=== PATIENT | female | born 1990 | race Caucasian/White ===

== ENCOUNTER 2017-08-16 22:39 | Emergency (ER) | payer SELFPAY ==
[2017-08-16 22:53] VITALS: BP 151/88
--- NOTE | 2017-08-16 23:42 | RADIOLOGY REPORT (SQ) ---
EXAM DESCRIPTION: FOOT LEFT COMPLETE CLINICAL HISTORY: 26 years, Female, pain with walking, no injury COMPARISON: None. NUMBER OF VIEWS: 3 Findings: Small osteophyte at the base of the left fifth metatarsus. Bipartite fibular sesamoid. Bones, joints, and soft tissues of FOOT LEFT appear otherwise intact. No significant effusion. IMPRESSION: No acute findings.
[2017-08-16] MEDS ORDERED: PREDNISONE 20 MG TABLET PO ONE (23:55)
--- NOTE | 2017-08-16 23:59 | ER Document Report ---
ED General - General Chief Complaint: Foot Pain Stated Complaint: LEFT HEEL PAIN WHEN WALKING,NO KNOWN INJURY Time Seen by Provider: 08/16/17 23:44 Notes: Patient is a 26-year-old female with a past medical history of morbid obesity who presents with 1 week of left heel pain. She describes as a severe, throbbing pain that is present when she tries to bear weight. She states that the symptoms been unchanged since onset despite use of ibuprofen. She denies a history of similar symptoms in the past. No known injury to the area. She denies any pain when she is not walking or bearing weight on the area. She has not seen her primary care doctor regarding today's concerns. She does admit to frequent use of flip-flops and does not use supportive shoes while at work. TRAVEL OUTSIDE OF THE [place] IN LAST 30 DAYS: No - Related Data Allergies/Adverse Reactions: No Known Allergies Allergy (Verified 07/21/13 13:40) Past Medical History - General Information source: Patient - Social History Smoking Status: Never Smoker Frequency of alcohol use: None Drug Abuse: None Lives with: Family Family History: CAD - mother and father, Hypertension - mother Pulmonary Medical History: Reports: Hx Asthma Endocrine Medical History: Reports: Hx Diabetes Mellitus Type 2 - but has not taken her metformin, was told to take 500mg bid Musculoskeltal Medical History: Reports Hx Fibromyalgia Psychiatric Medical History: Reports: Hx Anxiety - on buspar, feels not working , Hx Bipolar Disorder, Hx Depression - major Past Surgical History: Reports: Hx Orthopedic Surgery - right ankle - Immunizations Hx Diphtheria, Pertussis, Tetanus Vaccination: No Review of Systems - Review of Systems Notes: Constitutional: Negative for fever. HENT: Negative for sore throat. Eyes: Negative for visual changes. Cardiovascular: Negative for chest pain. Respiratory: Negative for shortness of breath. Gastrointestinal: Negative for abdominal pain, vomiting or diarrhea. Genitourinary: Negative for dysuria. Musculoskeletal: Positive for left heel pain Skin: Negative for rash. Neurological: Negative for headaches, weakness or numbness. 10 point ROS negative except as marked above and in HPI. Physical Exam - Vital signs Vitals: Temp Pulse Resp BP Pulse Ox 98.4 F 110 H 20 151/88 H 97 08/16/17 22:50 08/16/17 22:50 08/16/17 22:50 08/16/17 22:50 08/16/17 22:50 Interpretation: Tachycardic Notes: PHYSICAL EXAMINATION: GENERAL: Well-appearing, well-nourished and in no acute distress. HEAD: Atraumatic, normocephalic. EYES: sclera anicteric, conjunctiva are normal. ENT: Moist mucous membranes. NECK: Normal range of motion LUNGS: Normal work of breathing HEART: 2+ radial pulses bilaterally EXTREMITIES: no pitting or edema. No cyanosis. Pain on palpation of the calcaneal region of the left heel. Otherwise no notable findings on extremity examination. NEUROLOGICAL: No focal neurological deficits. Moves all extremities spontaneously and on command. PSYCH: Normal mood, normal affect. SKIN: Warm, Dry, normal turgor, no rashes or lesions noted. Course - Re-evaluation Re-evalutation: 08/16/17 23:58 Patient presents with signs and symptoms most consistent with a likely hairline calcaneal fracture on the left. She has no pain on palpation of the central plantar surfaces that she has plantar fasciitis. The pain is exclusively on palpation of the calcaneus. X-ray without any evidence of an acute fracture. Anticipate that this is likely a microfracture or a soft tissue contusion of the area. Patient is morbidly obese which is likely contributing to the development and ongoing nature of this complaint. I recommended icing the area , keeping off the area, wearing very supportive shoes and continue NSAID therapy. The patient has requested steroid burst as she states this is helped with similar issues in the past. I have explained the patient that this may not be beneficial but is also unlikely to be harmful. At this time will discharge with return precautions and follow-up recommendations. Verbal discharge instructions given a the bedside and opportunity for questions given. Medication warnings reviewed. Patient is in agreement with this plan and has verbalized understanding of return precautions and the need for primary care follow-up in the next 24-72 hours. - Vital Signs Vital signs: Temp Pulse Resp BP Pulse Ox 98.4 F 110 H 20 151/88 H 97 08/16/17 22:50 08/16/17 22:50 08/16/17 22:50 08/16/17 22:50 08/16/17 22:50 Discharge - Discharge Clinical Impression: Heel pain Qualifiers: Laterality: left Qualified Code(s): M79.672 - Pain in left foot Condition: Good Disposition: HOME, SELF-CARE Additional Instructions: Your x-ray does not show any acute fracture today. You may have a hairline fracture of the calcaneus which fits with the likely cause of your pain. You need to wear very supportive shoes while at work and avoid sandals at all times. Take the steroids that you have requested as prescribed. Continue to apply ice to the area is much your able. Please follow-up with your primary care physician if you do not have improving your symptoms in the next 1-2 weeks. Please return immediately if you develop weakness, numbness, spreading redness from the area, or any other symptoms that are concerning to you. Prescriptions: Prednisone [Deltasone 20 mg Tablet] 2 tab PO DAILY 5 Days tablet Forms: Return to Work Referrals: WINSTON,NO [Primary Care Provider] - Follow up as needed
== END 2017-08-17 00:09 | disposition home or self-care (01) ==
LOC: ER 22:39
DX: M79.672 Pain in left foot (principal); E66.01 Morbid (severe) obesity due to excess calories
CPT/HCPCS: 99283; 73630; J7512

== ENCOUNTER 2019-04-12 01:38 | Emergency (ER) | payer SELFPAY ==
--- NOTE | 2019-04-12 03:43 | ER Document Report ---
HPI - HPI Time Seen by Provider: 04/12/19 03:35 Pain Level: 4 Context: Patient is a 28-year-old female that comes to the emergency department for chief complaint of left-sided chest pain. She states pain radiates to her left shoulder, hurts when she moves her left arm. She states she has had intermittent soreness in this location and yesterday she helped a friend move furniture, she states today the pain bridger gotten a lot worse than usual. She denies numbness, injury, fever/chills, difficulty breathing, nausea/vomiting. LMP within the past month. She denies any daily prescribed medications. PMH of hypertension. She denies family history of early cardiac disease. She denies recreational drugs. She smokes, reports rare alcohol. - GASTROINTESTINAL Gastrointestinal: REPORTS: Abdominal Pain - left chest - REPRODUCTIVE Reproductive: DENIES: : - MUSCULOSKELETAL Musculoskeletal: REPORTS: Extremity pain - left arm Past Medical History - General Information source: Patient - Social History Smoking Status: Current Every Day Smoker Smoking Education Provided: Yes - <3 min Lives with: Family Family History: CAD - mother and father, Hypertension - mother Patient has suicidal ideation: No Patient has homicidal ideation: No - Past Medical History Cardiac Medical History: Reports: Hx Hypertension Pulmonary Medical History: Reports: Hx Asthma Endocrine Medical History: Reports: Hx Diabetes Mellitus Type 2 - but has not taken her metformin, was told to take 500mg bid Musculoskeletal Medical History: Reports Hx Fibromyalgia Psychiatric Medical History: Reports: Hx Anxiety - on buspar, feels not working, Hx Bipolar Disorder, Hx Depression - major Past Surgical History: Reports: Hx Orthopedic Surgery - bilateral ankles - Immunizations Hx Diphtheria, Pertussis, Tetanus Vaccination: Yes Vertical Provider Document - CONSTITUTIONAL General Appearance: WD/WN, No Apparent Distress, Obese - INFECTION CONTROL TRAVEL OUTSIDE OF THE [place] IN LAST 30 DAYS: No - HEENT HEENT: Atraumatic, Normal ENT Exam, Normocephalic - NECK Neck: Normal Inspection - RESPIRATORY Respiratory: Breath Sounds Normal, No Respiratory Distress. negative: Chest Non-Tender - There is tenderness over the left lateral chest near the shoulder that extends up to the supraspinatus muscle of the shoulder and to the posterior shoulder, pain is worse with range of motion of the left arm but left arm range of motion is intact. 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 - CARDIOVASCULAR Cardiovascular: Regular Rate, Regular Rhythm - GI/ABDOMEN Gastrointestinal: Abdomen Soft, Abdomen Non-Tender. negative: Abdomen Tender - BACK Back: Normal Inspection - MUSCULOSKELETAL/EXTREMETIES Musculoskeletal/Extremeties: MAEW, FROM, Tender - See above note with the chest. Remaining extremities unremarkable - NEURO Level of Consciousness: Awake, Alert, Appropriate Motor/Sensory: No Motor Deficit, No Sensory Deficit - DERM Integumentary: Warm, Dry, No Rash Course - Re-evaluation Re-evalutation: Chest x-ray clear, EKG unremarkable, patient with very reproducible symptoms and a very reasonable cause of her symptoms reported.. For musculoskeletal, very low suspicion of acute intrathoracic etiology. Patient given Toradol here, placed on anti-inflammatories and muscle relaxers at home. Discussed follow-up, return precautions. Patient states understanding and agreement. - Vital Signs Vital signs: Temp Pulse Resp BP Pulse Ox 98.5 F 90 20 152/90 H 97 04/12/19 01:51 04/12/19 01:51 04/12/19 01:51 04/12/19 01:51 04/12/19 01:51 - EKG Interpretation by Me Additional EKG results interpreted by me: EKG shows sinus rhythm at a rate of 82, QTc 425, normal axis, no T wave inversions or ST segment changes in consecutive leads. Machine reads as normal. Discharge - Discharge Clinical Impression: Chest wall pain Left shoulder pain Qualifiers: Chronicity: acute Qualified Code(s): M25.512 - Pain in left shoulder Condition: Stable Disposition: HOME, SELF-CARE Additional Instructions: Your evaluation is reassuring, this appears to be chest wall pain and muscle strain in your left shoulder. Apply heat, massage the area, take anti- inflammatory and muscle relaxer as prescribed, rest the shoulder. Symptoms sh ould gradually resolve. Follow-up with primary care. Return if you worsen including difficulty breathing, fever, severe worsening pain, numbness, passing out, or any other concerning symptoms. Prescriptions: Cyclobenzaprine HCl [Flexeril 5 mg Tablet] 1 - 2 tab PO TID PRN #20 tablet PRN Reason: Naproxen 500 mg PO BID PRN #20 tablet PRN Reason:
[2019-04-12] MEDS ORDERED: KETOROLAC TROMETHAMINE 60 MG/2 ML SDV IM ONE (04:27)
--- NOTE | 2019-04-12 04:41 | RADIOLOGY REPORT (SQ) ---
EXAM DESCRIPTION: XR CHEST 2 VIEWS COMPLETED DATE/TME: 04/12/2019 03:41 CLINICAL HISTORY: 28 years, Female, left sided chest pain COMPARISON: 12/05/2015 chest NUMBER OF VIEWS: 2 TECHNIQUE: 2 views of the chest LIMITATIONS: None. FINDINGS: The heart size is normal. The lungs are clear. No pneumothorax IMPRESSION: Negative chest copyright 2010 [employer]- All Rights Reserved
[2019-04-12 06:10] VITALS: BP 153/76
--- NOTE | 2019-04-12 18:19 | EKG REPORT ---
SEVERITY:- NORMAL ECG - SINUS RHYTHM : Confirmed by: César Bautista 12-Apr-2019 18:18:40
== END 2019-04-12 06:02 | disposition home or self-care (01) ==
LOC: ER 01:38
DX: R07.89 Other chest pain (principal); M79.602 Pain in left arm; M25.512 Pain in left shoulder; F17.200 Nicotine dependence, unspecified, uncomplicated; I10 Essential (primary) hypertension; E11.9 Type 2 diabetes mellitus without complications; Z79.84 Long term (current) use of oral hypoglycemic drugs
CPT/HCPCS: 93005; 99285; 96374; 71046; 93010; J1885